=== PATIENT | male | born 1985 | race Caucasian/White ===

== ENCOUNTER 2018-08-13 13:33 | Emergency (ER) | payer OTHER ==
[~2018-08-13] VITALS: Ht 167.6 cm; Wt 72.6 kg
--- NOTE | 2018-08-13 13:37 | NUR ---
Arrived as a walk in with compliant of headache and fatigue with gradual onset since this morning. Patient does not have any nucheal rigidity, pain is worsened with exposure to light. Placed in room 7. Placed on cardiac cath rn, blood pressure machine and pulse oximeter. To gown for exam. Side rails up. Report given to Yosvany WALTON.
--- NOTE | 2018-08-13 13:40 | NUR ---
Pt presents to ER c/o sudden onset headache 8/10 on pain scale, pt denies nausea or vomiting, denies chest pain or sob. Pt reports that he feels like hes "going to pass out". Upon arrival to ER pt appears lethargic, hands on his head eyes closed because the light makes the pain worse per pt. Pt AOX4, ambulatory, speaking full sentences, respirations even and unlabored.
[2018-08-13 13:41] VITALS: BP_SYST 173
--- NOTE | 2018-08-13 13:45 | NUR ---
ER at bedside examining patient.
--- NOTE | 2018-08-13 14:00 | NUR ---
# 20 gauge angiocath placed to LAC. Use of asceptic technique. Opsite placed over site. Blood return noted. Blood for lab drawn from site. Flushed with 10 cc of normal saline. No evidence of infiltration noted. Patient tolerated well.
[2018-08-13 14:11] LABS: BASOPHILS # (AUTO) 0.1 K/uL (0.0-0.2); BASOPHILS % (AUTO) 0.6 % (0.0-2.0); EOSINOPHILS # (AUTO) 0.2 K/uL (0.0-0.4); HEMATOCRIT 49.3 % (36-54); HEMOGLOBIN 16.3 g/dL (14.0-18.0); LYMPHOCYTES % (AUTO) 10.8 % (20.5-51.5); MEAN CORPUSCULAR HEMOGLOBIN 31 pg (27-31); MEAN CORPUSCULAR HGB CONC 33 % (32-36); MEAN CORPUSCULAR VOLUME 93 fL (79.0-98.0); MONOCYTES # (AUTO) 0.6 K/uL (0.0-1.0); MONOCYTES % (AUTO) 5.9 % (1.7-9.3); NEUTROPHILS # (AUTO) 7.4 K/uL (1.8-7.7); NEUTROPHILS % (AUTO) 80.7 % (40.0-70.0); PLATELET COUNT (AUTO) 251 K/uL (130-430); RED BLOOD CELL COUNT(AUTO) 5.32 MIL/uL (4.2-6.2); RED CELL DISTRIBUTION WIDTH 12.3 % (9.0-15.0); WHITE BLOOD COUNT (AUTO) 9.3 K/uL (4.8-10.8)
--- NOTE | 2018-08-13 14:20 | NUR ---
Patient transported to radiology via wheelchair, accompanied by rad staff.
[2018-08-13 14:24] LABS: CALCIUM 8.8 mg/dL (8.4-11.0); CREATININE 0.9 mg/dL (0.55-1.30); POTASSIUM 3.6 mmol/L (3.5-5.1)
[2018-08-13 14:29] LABS: ALBUMIN 3.8 g/dL (3.4-4.8); TOTAL BILIRUBIN 0.8 mg/dL (0.0-1.0)
--- NOTE | 2018-08-13 14:33 | NUR ---
Returned from radiology, back to [facility].
[2018-08-13] MEDS ORDERED: ceFAZolin SODIUM 1 GM in D5W 50 ML IV ONE (15:00)
--- NOTE | 2018-08-13 15:15 | NUR ---
Ultrasound at bedside.
--- NOTE | 2018-08-13 15:35 | NUR ---
Orders for IV Ancef ordered by Dr. Clark reviewed with Dr. Prater who gives verbal orders to withhold IV Ancef administration at this point.
--- NOTE | 2018-08-13 15:53 | NUR ---
Patient does not wish to proceed with medical care recommended by Dr. Clark. Patient given information related to possible complications, up to and including , which could occur as a result of leaving hospital at this time. Patient verbalizes understanding of risks involved leaving against medical advice. Patient has signed AMA form.
== END 2018-08-13 15:53 | disposition left against medical advice (07) ==
LOC: SED 13:33
DX: F41.9 Anxiety disorder, unspecified (principal); I10 Essential (primary) hypertension
CPT/HCPCS: 36415; 70450-TC; 80053; 85025; 93005; 93971; 99285